=== PATIENT | male | born 1970 | race African-American/Black ===

== ENCOUNTER 2020-10-16 15:19 | Emergency (ER) | payer BC ==
--- OUTSIDE RECORDS SUMMARY | 2020-10-16 15:26 | XMS REPORT | Continuity of Care Document ---
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 Jaciel rial [place] Diastolic (mm Hg) 2015-05-12 02:29:00 Mem orial [facility] Heart Rate 2015-05-12 02:29:00 [facility] [place] Respitory Rate 2015-05-12 02:29:00 Memori al [place] BMI Calculated 2015-05-11 17:44:00 Memori al [place] Height 2015-05-11 17:44:00 175.26 cm [facility] Weight 2015-05-11 17:44:00 [facility] Respitory Rate 2015-05-11 17:44:00 Memori al [facility] Heart Rate 2015-05-11 17:44:00 [facility] [place] Systolic (mm Hg) 2015-05-11 17:44:00 Jaciel rial [facility] Diastolic (mm Hg) 2015-05-11 17:44:00 Mem [facility] [place] Temperature Oral (F) 2014-09-07 05:25:00 98.2 F [facility] Respitory Rate 2014-09-07 05:25:00 Memori al [place] Heart Rate 2014-09-07 05:25:00 [facility] Systolic (mm Hg) 2014-09-07 05:25:00 Jaciel rial [place] Diastolic (mm Hg) 2014-09-07 05:25:00 Mem orial [place] BMI Calculated 2014-09-07 01:20:00 Memori al [facility] Height 2014-09-07 01:20:00 175.26 cm [facility] Heart Rate 2014-09-07 01:20:00 [facility] [place] Respitory Rate 2014-09-07 01:20:00 Memori al Erik Systolic (mm Hg) 2014-09-07 01:20:00 Jaciel rial [place] Diastolic (mm Hg) 2014-09-07 01:20:00 Mem orial [place] Weight 2014-09-07 01:20:00 [facility] Temperature Oral (F) 2014-09-07 01:20:00 97.4 F [facility] Procedures Procedure Date / Time Performed Performing Clinician Sour e ACD - Automatic cardiac [facility] [place] defibrillator procedure Plan of Care Planned Activity Planned Date Details Comments Source Future Scheduled Test Hepatitis C screening [facility] (procedure) [code = 499394504] Future Scheduled Test INFLUENZA VACCINE [facility] [code = INFLUENZA VACCINE] Future Scheduled Test Hepatitis C screening [facility] (procedure) [code = 697865008] Future Scheduled Test INFLUENZA VACCINE [facility] [code = INFLUENZA VACCINE] Encounters Start End Encounter Admission Attending Care Care Encounter Source Date/Time Date/Time Type Type Clinicians Facility Department ID 2020-10-12 2020-10-12 Refill [place] 1.2.840.1 [id number] Methodi 00:00:00 00:00:00 Matt nascimento 04189.1.[address] 3.430.2.7 Hospit a .3.800508 l .8 2020-10-01 2020-10-05 Inpatient EM Du Regan HCAKW CARD [id number] [id number] [facility] 21:46:00 13:46:00 [id number] [facility] [address] 2020-09-28 2020-09-28 Refill [place] 1.2.840.1 [id number] Methodi 00:00:00 00:00:00 Matt nascimento 44338.1.[address] 3.430.2.7 Hospit a .3.624550 l .8 2020-09-28 2020-09-28 Refill [place] 1.2.840.1 [id number] Methodi 00:00:00 00:00:00 Matt nascimento 18617.1.[address] 3.430.2.7 Hospit a .3.753406 l .8 2020-09-17 2020-09-17 Refill Martínez, 1.2.840.1 [id number] 2099 [id number] Methodi 00:00:00 00:00:[address] 3.430.2.7 Hospit a .3.530036 l .8 2020-09-17 2020-09-17 Refill Martínez, 1.2.840.1 [id number] 2099 [id number] Methodi 00:00:00 00:00:[address] 3.430.2.7 Hospit a .3.562263 l .8 2020-09-15 2020-09-15 Refill [place] 1.2.840.1 [id number] 21 [id number] Methodi 00:00:00 00:00:00 g, Matt 33582.1.[address] 3.430.2.7 Hospit a .3.255236 l .8 2020-09-15 2020-09-15 Refill [place] 1.2.840.1 [id number] 21 [id number] Methodi 00:00:00 00:00:00 g, Matt 33004.1.[address] 3.430.2.7 Hospit a .3.323425 l .8 2020-08-31 2020-08-31 Refill [place] 1.2.840.1 [id number] 21 [id number] Methodi 00:00:00 00:00:00 g, Matt 11017.1.[address] 3.430.2.7 Hospit a .3.303200 l .8 2020-08-31 2020-08-31 Refill [place] 1.2.840.1 [id number] 21 [id number] Methodi 00:00:00 00:00:00 g, Matt 41114.1.[address] 3.430.2.7 Hospit a .3.383035 l .8 2020-08-25 2020-08-25 Emergency HarmanRadha bishop HCAKW FCER CD563 677-2 [facility] 18:38:00 19:29:00 [id number] [facility] [address] 2020-08-17 2020-08-17 Refill [place] 1.2.840.1 [id number] 21 [id number] Methodi 00:00:00 00:00:00 g, Matt 86267.1.[address] 3.430.2.7 Hospit a .3.556239 l .8 2020-08-17 2020-08-17 Refill [place] 1.2.840.1 [id number] 21 [id number] Methodi 00:00:00 00:00:00 g, Matt 50729.1.[address] 3.430.2.7 Hospit a .3.436030 l .8 2020-08-07 2020-08-07 Refill [place] 1.2.840.1 [id number] 21 [id number] Methodi 00:00:00 00:00:00 g, Matt 32699.1.[address] 3.430.2.7 Hospit a .3.922711 l .8 2020-08-07 2020-08-07 Refill [place] 1.2.840.1 [id number] 21 [id number] Methodi 00:00:00 00:00:00 g, Matt 49087.1.[address] 3.430.2.7 Hospit a .3.490347 l .8 2020-08-04 2020-08-04 Refill [place] 1.2.840.1 [id number] 21 [id number] Methodi 00:00:00 00:00:00 g, Matt [address]2546.1.[address] 3.430.2.7 Hospit a .3.001893 l .8 2020-08-04 2020-08-04 Refill [place] 1.2.840.1 [id number] 21 [id number] Methodi 00:00:00 00:00:00 g, Matt 16646.1.[address] 3.430.2.7 Hospit a .3.040167 l .8 2020-07-17 2020-07-17 Refill [place] 1.2.840.1 [id number] 21 [id number] Methodi 00:00:00 00:00:00 g, Matt 72258.1.[address] 3.430.2.7 Hospit a .3.538614 l .8 2020-07-17 2020-07-17 Refill [place] 1.2.840.1 [id number] 21 [id number] Methodi 00:00:00 00:00:00 g, Matt [address]4670.1.[address] 3.430.2.7 Hospit a .3.810945 l .8 2020-07-07 2020-07-07 Refill [place] 1.2.840.1 [id number] 21 [id number] Methodi 00:00:00 00:00:00 g, Matt 50181.1.[address] 3.430.2.7 Hospit a .3.896634 l .8 2020-07-07 2020-07-07 Refill [place] 1.2.840.1 [id number] 21 [id number] Methodi 00:00:00 00:00:00 g, Matt 37215.1.[address] 3.430.2.7 Hospit a .3.564453 l .8 2020-06-16 2020-06-16 Refill [place] 1.2.840.1 [id number] Methodi 00:00:00 00:00:00 g, Matt 19469.1.[address] 3.430.2.7 Hospit a .3.470744 l .8 2020-06-16 2020-06-16 Refill [place] 1.2.840.1 [id number] Methodi 00:00:00 00:00:00 g, Matt 75423.1.[address] 3.430.2.7 Hospit a .3.890258 l .8 2020-05-26 2020-05-26 Refill [place] 1.2.840.1 [id number] Methodi 00:00:00 00:00:00 g, Matt 36576.1.[address] 3.430.2.7 Hospit a .3.806573 l .8 2020-05-26 2020-05-26 Refill [place] 1.2.840.1 [id number] Methodi 00:00:00 00:00:00 g, Matt 61255.1.[address] 3.430.2.7 Hospit a .3.801468 l .8 2020-05-14 2020-05-14 Sae Mercado 1.2.840.1 [id number] 57780 71834 Methodi 07:58:38 08:03:38 Support Christopher 14811.1.[address] P. 3.430.2.7 Hospit a .3.986034 l .8 2020-05-14 2020-05-14 Clinical Jess, 1.2.840.1 [id number] 71035 72879 Methodi 07:58:38 08:03:38 Support Scottopher 24440.1.[address] P. 3.430.2.7 Hospit a .3.459689 l .8 2020-05-14 2020-05-14 Travel 1.2.840.1 1.2.854.611 4696 025001 Methodi 00:00:00 00:00:[address] 3.430.2.7 0.2.7.3.698 Ho spita .3.734316 084.8 l .8 2020-05-14 2020-05-14 Travel 1.2.840.1 1.2.164.019 4709 629962 Methodi 00:00:00 00:00:[address] 3.430.2.7 0.2.7.3.698 Ho spita .3.835363 084.8 l .8 2020-05-12 2020-05-12 Refill [place] 1.2.840.1 [id number] Methodi 00:00:00 00:00:00 [address].1.[address] 3.430.2.7 Hospit a .3.812264 l .8 2020-05-12 2020-05-12 Refill [place] 1.2.840.1 [id number] Methodi 00:00:00 00:00:00 g, Matt 02770.1.[address] 3.430.2.7 Hospit a .3.626145 l .8 2020-05-01 2020-05-01 Refill [place] 1.2.840.1 [id number] Methodi 00:00:00 00:00:00 g, Matt 59012.1.[address] 3.430.2.7 Hospit a .3.975274 l .8 2020-05-01 2020-05-01 Refill [place] 1.2.840.1 [id number] Methodi 00:00:00 00:00:00 g, Matt 78132.1.[address] 3.430.2.7 Hospit a .3.126101 l .8 2020-04-29 2020-04-29 Refill [place] 1.2.840.1 [id number] Methodi 00:00:00 00:00:00 g, Matt 71191.1.[address] 3.430.2.7 Hospit a .3.551468 l .8 2020-04-29 2020-04-29 Refill [place] 1.2.840.1 [id number] Methodi 00:00:00 00:00:00 g, Matt 12613.1.[address] 3.430.2.7 Hospit a .3.165439 l .8 2020-04-27 2020-04-27 Refill Martínez, 1.2.840.1 [id number] 2099 [id number] Methodi 00:00:00 00:00:[address] 3.430.2.7 Hospit a .3.330603 l .8 2020-04-27 2020-04-27 Refill Martínez, 1.2.840.1 [id number] 2099 [id number] Methodi 00:00:00 00:00:[address] 3.430.2.7 Hospit a .3.413330 l .8 2020-04-23 2020-04-23 Clinical 1.2.840.1 [id number] 94626 94642 Methodi 08:15:28 08:20:[address] 3.430.2.7 Hospit a .3.192943 l .8 2020-04-23 2020-04-23 Clinical 1.2.840.1 [id number] 44333 39964 Methodi 08:15:28 08:20:[address] 3.430.2.7 Hospit a .3.604410 l .8 2020-04-23 2020-04-23 Travel 1.2.840.1 1.2.158.388 8545 889336 Methodi 00:00:00 00:00:[address] 3.430.2.7 0.2.7.3.698 Ho spita .3.454558 084.8 l .8 2020-04-23 2020-04-23 Travel 1.2.840.1 1.2.398.291 1536 245719 Methodi 00:00:00 00:00:[address] 3.430.2.7 0.2.7.3.698 Ho spita .3.072202 084.8 l .8 2020-04-03 2020-04-03 Refill [place] 1.2.840.1 [id number] 21 [id number] Methodi 00:00:00 00:00:00 Matt nascimento 08296.1.[address] 3.430.2.7 Hospit a .3.069298 l .8 2020-04-03 2020-04-03 Refill [place] 1.2.840.1 [id number] Methodi 00:00:00 00:00:00 Matt nascimento 36771.1.[address] 3.430.2.7 Hospit a .3.956726 l .8 2018-06-09 2018-06-09 Emergency [facility] 01794 02559 Memoria 08:43:00 12:10:00 claudia brooks [facility] 2018-06-09 2018-06-09 Emergency [facility] 35749 56754 Memoria 08:43:00 12:10:00 claudia brooks [facility] 2018-06-09 2018-06-09 Outpatient Segerson, [facility] 07677 76158 03:43:00 07:10:00 Chace Butler 2018-06-09 2018-06-09 Emergency [facility] [place] 9117 [facility] 03:43:00 03:43:00 2017-07-29 2017-07-30 [facility] 69267 54038 Memoria 23:42:00 03:15:00 r [place] 03 l [facility] 2017-07-29 2017-07-30 Emergency [facility] 43964 50589 Memoria 23:42:00 03:15:00 r [place] 03 l [facility] 2017-07-29 2017-07-29 Outpatient Weathers, [facility] 29450 01547 18:42:00 22:15:00 Patel Tarun 03 2015-05-11 2015-05-12 EC [facility] [id number] 875 Memoria 17:37:00 02:32:00 Emergency r [place] 02 l [facility] 2015-05-11 2015-05-12 EC [facility] [id number] 875 Memoria 17:37:00 02:32:00 Emergency r Erik 02 l [facility] 2015-05-11 2015-05-11 Outpatient Volkov, [facility] [id number] 875 12:37:00 21:32:00 Yogi 02 2014-09-07 2014-09-07 [facility] [id number] 875 Memoria 01:16:00 05:46:00 Emergency r [place] 01 l [facility] 2014-09-07 2014-09-07 EC [facility] [id number] 875 Memoria 01:16:00 05:46:00 Emergency r [place] 01 l [facility] 2014-09-06 2014-09-07 Outpatient Ivan, [facility] [id number] 875 20:16:00 00:46:00 Dawson Merida 01 Results Test Description Test Time Test Comments Results Result Comments Source BASIC METABOLIC PANEL 2020-10-05 06:26:00 Test Item Value Reference Range Interpretation Comme nts SODIUM (test code = NA) 139 mmol/L 137-145 N POTASSIUM (test code = K) 4.3 mmol/L 3.4-5.0 N CHLORIDE (test code = CL) 108 mmol/L 98-107 H CARBON DIOXIDE (test code = 21 mmol/L 22-30 L CO2) GLUCOSE (test code = GLU) 103 mg/dL 74-106 N BLOOD UREA NITROGEN (test code 23 mg/dL 9-20 H = BUN) GLOMERULAR FILTRATION RATE 43 >60 L T he estimated glomerular (test code = GFR) filtration rate is computed usingpatient ra ce, age (>18), sex, and serum creatinine. If anyof the neede d data elements are missing the Laboratory cannot compute an estimation of the glomerular filtration rate. CREATININE (test code = CREAT) 2.1 mg/dL 0.7-1.3 H CALCIUM (test code = CA) 9.0 mg/dL 8.4-10.2 N BASIC METABOLIC [id number] 04:58:00 Test Item Value Reference Range Interpretation Comments SODIUM (test code = 137 mmol/L 137-145 N NA) POTASSIUM (test code 4.2 mmol/L 3.4-5.0 N = K) CHLORIDE (test code = 109 mmol/L 98-107 H CL) CARBON DIOXIDE (test 20 mmol/L 22-30 L code = CO2) GLUCOSE (test code = 104 mg/dL 74-106 N GLU) BLOOD UREA NITROGEN 25 mg/dL 9-20 H (test code = BUN) GLOMERULAR FILTRATION 41 >60 L The es timated RATE (test code = glomerular filtration GFR) rate is compute d usingpatient ra ce, age (>18), sex, and serum creatinine. If anyof the needed data elements are mi ssing the Laboratory cannot compute an koffi mation of the glomerul ar filtration rate . CREATININE (test code 2.2 mg/dL 0.7-1.3 H = CREAT) CALCIUM (test code = 8.9 mg/dL 8.4-10.2 N CA) - CT CHEST W/O [id number] 18:12:00 [facility] : 1970 Sex: M FAX: Nicolás Cornell II [phone] [place]: St: ADM FAX: Du Metz MD [phone] Name: ROSS MACHADO [facility] : 1970 Age/S: 50/M [address] Unit: [id number] Loc: [address] [address] Phys: Nicolás Hdz II, MD Acct: [id number] Dis Date: Status: ADM IN PHONE#: [phone] Exam Date: 10/03/2020 1740 FAX #: [phone] Reason: AORTIC DISSECTION EXAMS: CPT CODE: [id number] CT CHEST W/O CONTRAST 06311 EXAMINATION: - CT ABDOMEN W/O CONTRAST, - CT CHEST W/O CONTRAST COMPARISON: CT scan of the abdomen performed 7 hours previously HISTORY: Pain LOCATION CODE: C3 TECHNIQUE: CT of the Chest and Abdomen without contrast. Oral contrast was not administered Axial noncontrast enhanced images of the chest and abdomen were obtained and reviewed in soft tissue, bone and lung windows. Coronal and sagittal reconstructedimages were also provided for review. All CT scans are performed using dose optimization techniques as appropriate to a performed exam including one or more of the following: ?Automated exposure control ?Adjustment of the mA and/or kV according to patient size ?Use of iterative reconstruction technique FINDINGS CHEST: Areas of mild dependent atelectasis are seen in the right lower lobe the lung. The lungs are otherwise clear. The central airways are patent. There is no mediastinal, axillary or supraclavicular ad enopathy. The aortic root is dilated, measuring 5.9 x 6.5 cm. Graft material is seen in the ascending aorta just distal to this area. There is no evidence of acute dissection. The descending thoracic aorta measures 3.9 cm and the aorta at the diaphragmatic hiatus measures 3.8 cm. Single lead implanted cardiac device is present in the left chest wall. Sternotomy wires are evident. The thyroid is diminutive and heterogeneous. Regional osseous structures are intact. FINDINGS ABDOMEN: Findings in the abdomen are stable. There has been no significant change in the appearance of the solid visceral organs, the bowel, bonesor the vessels since the CT performed earlier the same day.. No acute abnormalities are identified in the aorta or its branch vessels are stable in appearance. Colonic diverticulosis is unchanged. PAGE 1 Signed Report (CONTINUE D) FAX: Nicolás Cornell II [phone] [place]: St: ADM FAX: Du Metz [phone] Name: ROSS MACHADO [facility] : 1970 Age/S: 50/M [address] Unit: [id number] Loc: C.[address] [place] [address] Phys: Nicolás Hdz II, MD Acct: [id number] Dis Date: Status: ADM IN PHONE #: [phone] Exam Date: 10/03/2020 174 FAX #: [phone] Reason: AORTIC DISSECTION EXAMS: CPT CODE: [id number] CT CHEST W/O CONTRAST 96807 <Continued> IMPRESSION: Dilated aortic root with presumed graft material seen in the ascending aorta as detailed above. No acute vascular abnormalities are identified. The appearance of the abdomen is unchanged from the CT performed earlier the same day at 1812 Reported and signed by: Trinity Jerry MD CC: Nicolás Hdz II, MD; Eliseo Regan MD Technologist: Marilu Talleydejose m Dt/Tm: 10/03/2020 (1811) [id number] Orig Print D/T: S: 10/03/2020 (2245 PAGE 2 Signed Report- CT ABDOMEN W/O [id number] 18:12:00 [facility] : 1970 Sex: M FAX: Nicolás Cornell II [phone] [place]: St: ADM FAX: Du Metz MD [phone] Name: ROSS MACHADO [facility] : 1970 Age/S: 50/M [address] Unit: [id number] Loc: C3310 [place] [address] Phys: Nicolás Hdz II, MD Acct: [id number] Dis Date: Status: ADM IN PHONE#: [phone] Exam Date: 10/03/2020 1740 FAX #: [phone] Reason: AORTIC DISSECTION EXAMS: CPT CODE: [id number] CT ABDOMEN W/O CONTRAST 60282 EXAMINATION: - CT ABDOMEN W/O CONTRAST, - CT CHEST W/O CONTRAST COMPARISON: CT scan of the abdomen performed 7 hours previously HISTORY: Pain LOCATION CODE: C3 TECHNIQUE: CT of the Chest and Abdomen without contrast. Oral contrast was not administered Axial noncontrast enhanced images of the chest and abdomen were obtained and reviewed in soft tissue, bone and lung windows. Coronal and sagittal reconstructedimages were also provided for review. All CT scans are performed using dose optimization techniques as appropriate to a performed exam including one or more of the following: ?Automated exposure control ?Adjustment of the mA and/or kV according to patient size ?Use of iterative reconstruction technique FINDINGS CHEST: Areas of mild dependent atelectasis are seen in the right lower lobe the lung. The lungs are otherwise clear. The central airways are patent. There is no mediastinal, axillary or supraclavicular ad enopathy. The aortic root is dilated, measuring 5.9 x 6.5 cm. Graft material is seen in the ascending aorta just distal to this area. There is no evidence of acute dissection. The descending thoracic aorta measures 3.9 cm and the aorta at the diaphragmatic hiatus measures 3.8 cm. Single lead implanted cardiac device is present in the left chest wall. Sternotomy wires are evident. The thyroid is diminutive and heterogeneous. Regional osseous structures are intact. FINDINGS ABDOMEN: Findings in the abdomen are stable. There has been no significant change in the appearance of the solid visceral organs, the bowel, bonesor the vessels since the CT performed earlier the same day.. No acute abnormalities are identified in the aorta or its branch vessels are stable in appearance. Colonic diverticulosis is unchanged. PAGE 1 Signed Report (CONTINUE D) FAX: Nicolás Cornell II [phone] [place]: St: ADM FAX: Du Metz [facility] [phone] Name: ROSS MACHADO [facility] : 1970 Age/S: 50/M [address] Unit: [id number] Loc: C.7[address] [place] [address] Phys: Nicolás Hdz II, MD Acct: [id number] Dis Date: Status: ADM IN PHONE #: [phone] Exam Date: 10/03/2020 1740 FAX #: [phone] Reason: AORTIC DISSECTION EXAMS: CPT CODE: [id number] CT ABDOMEN W/O CONTRAST 95992 <Continued> IMPRESSION: Dilated aortic root with presumed graft material seen in the ascending aorta as detailed above. No acute vascular abnormalities are identified. The appearance of the abdomen is unchanged from the CT performed earlier the same day at 1812 Reported and signed by: Trinity Jerry MD CC: Nicolás Hdz II, MD; Eliseo Regan MD Technologist: Marilu Bhatti Trnscrd Dt/Tm: 10/03/2020 (1811) [email or web address] Orig Print D/T: S: 10/03/2020 (5 PAGE 2 Signed Report- RETRO [id number] 13:04:00 [facility] : 1970 Sex: M FAX: Janae Spencer MD [place]: St: ADM FAX: Du Metz MD [phone] Name: ROSS MACHADO [facility] : 1970 Age/S: 50/M [address] Unit #: [id number] Loc: C.[address] [place] [address] Phys: Janae Malagon MD Acct: [id number] Dis Date: Status: ADM IN PHONE #: [phone] Exam Date: 10/03/2020 1249 FAX #: [phone] Reason: CLAY EXAMS: CPT CODE: [id number] [facility] [address] Site ID: [id number] Renal ultrasound CLINICAL HISTORY: Acute kidney injury TECHNIQUE: Realtime barboza scale and color doppler imaging of the kidneys performed FINDINGS: The kidneys are normal in size and echogenicity. Theright kidney measures 9.5 x 5.4 cm. The left kidney measures 9.2 x 5 cm. No renal mass, hydronephrosis, or shadowing calculus is seen. Cortical thickness is well maintained bilaterally. IMPRESSION: Normal renal ultrasound at 1304 Reported and signed by: Leonard Logan MD CC: Janae Malagon MD; Du Regan MD Technologist: [facility]DRA LUTZ [facility] Date/Time/By: 10/03/2020 (5017) : By: [email or web address] PAGE 1 Signed Report FAX: Janae Spencer MD [place]: St: [facility] FAX:Du Metz MD [phone] Name: ROSS MACHADO [facility] : 1970 Age/S: 50/M [address] Unit #: [id number] Loc: C.[address] [place] [address] Phys: Janae Malagon MD Acct: [id number] Dis Date: Status: ADM IN PHONE #: [phone] Exam Date: 10/03/2020 1242 FAX #: [phone] Reason: CLAY EXAMS: CPT CODE: [id number] [facility] LTD [address]105 <Continued> Orig Print D/T: S: 10/03/2020 (8837) PAGE 2 Signed ReportCARDIAC ENZYMES [id number] 03:29:00 Test Item Value Reference Range Interpretation Comments TROPONIN-I (test 0.023 ng/mL 0.012-0.033 N code = TROPI) Please be advised of the updated reference ranges for the new Chemistry instrumentation . TROS TROPONIN I CRITERIANORM AL PATIENT W/O CIRCULATING TNI: 0.012-0.033 ng/mLCIRCULATIN G TNI PRESENT: 0.034- 0.119 ng/mL(MAY BE AT RISK OF AMI)AMI DIAGNOS TIC CUTOFF: >/= 0.120 ng/mL~~~~~~~~~~ ~~~~~~~~~~~ ~~~~~~~~~~~~~~~ ~~~~~~~~~~~ ~~~~~~~~~~~~The use of serial sampling and testing protoco l is arecommended pr actice.An elevated tropon in level alone is often not sufficient noonan iagnosis of myocardial infa rction. Troponin result s obtained by different as says may vary.Evaluation of the extent of myoca rdial damage based on increase of troponin would be valid only if similar methodology is used.~~~~~~~~~~ ~~~~~~~~~~~ ~~~~~~~~~~~~~~~ ~~~~~~~~~~~ ~~~~~~~~~~~~ A POSITIVE BIAS M AY OCCUR FOR PATIENTS TAKING BIOTIN SUPPLEMENTS~~~~ ~~~~~~~~~~~ ~~~~~~~~~~~~~~~ ~~~~~~~~~~~ ~~~~~~~~~~~~~~~ ~~~ BASIC METABOLIC [id number] 03:21:00 Test Item Value Reference Range Interpretation Comments SODIUM (test code = 138 mmol/L 137-145 N NA) POTASSIUM (test code 4.1 mmol/L 3.4-5.0 N = K) CHLORIDE (test code = 109 mmol/L 98-107 H CL) CARBON DIOXIDE (test 23 mmol/L 22-30 N code = CO2) GLUCOSE (test code = 112 mg/dL 74-106 H GLU) BLOOD UREA NITROGEN 29 mg/dL 9-20 H (test code = BUN) GLOMERULAR FILTRATION 36 >60 L The es timated RATE (test code = glomerular filtration GFR) rate is compute d usingpatient ra ce, age (>18), sex, and serum creatinine. If anyof the needed data elements are mi ssing the Laboratory cannot compute an koffi mation of the glomerul ar filtration rate . CREATININE (test code 2.5 mg/dL 0.7-1.3 H = CREAT) CALCIUM (test code = 8.4 mg/dL 8.4-10.2 N CA) CBC W/AUTO [id number] 03:02:00 Test Item Value Reference Range Interpretation Comments WHITE BLOOD CELL (test code = 6.6 x10 3/uL 5.0-12.0 N WBC) RED BLOOD CELL (test code = 3.76 x10 6/uL 4.70-6.10 L RBC) HEMOGLOBIN (test code = HGB) 10.9 g/dL 14.0-18.0 L HEMATOCRIT (test code = HCT) 34.2 % 37.0-49.0 L MEAN CELL VOLUME (test code = 91 fL 80-94 N MCV) MEAN CELL HGB (test code = MCH) 29.0 pg 27-31 N MEAN CELL HGB CONCENTRATION 31.9 g/dL 33-37 L (test code = MCHC) RED CELL DISTRIBUTION WIDTH 14.6 % 11.5-15.5 N (test code = RDW) PLATELET COUNT (test code = 186 x10 3/uL 130-400 N PLT) MEAN PLATELET VOLUME (test code 10.8 fL 9.4-16.4 N = MPV) NEUTROPHIL % (test code = NT%) 52.3 % 43-65 N IMMATURE GRANULOCYTE % (test 0.2 % 0.0-2.0 N code = IG%) LYMPHOCYTE % (test code = LY%) 38.2 % 20.5-45.5 N MONOCYTE % (test code = MO%) 7.9 % 5.5-11.7 N EOSINOPHIL % (test code = EO%) 0.9 % 0.9-2.9 N BASOPHIL % (test code = BA%) 0.5 % 0.2-1.0 N NUCLEATED RBC % (test code = 0.0 % 0-1.0 N NRBC%) NEUTROPHIL # (test code = NT#) 3.45 x10 3/uL 2.2-4.8 N IMMATURE GRANULOCYTE # (test 0.01 x10 3/uL 0-0.03 N code = IG#) LYMPHOCYTE # (test code = LY#) 2.52 x10 3/uL 1.3-2.9 N MONOCYTE # (test code = MO#) 0.52 x10 3/uL 0.3-0.8 N EOSINOPHIL # (test code = EO#) 0.06 x10 3/uL 0.0-0.2 N BASOPHIL # (test code = BA#) 0.03 x10 3/uL 0.0-0.1 N UR SODIUM [id number] 23:44:00 Test Item Value Reference Range Interpretation Comments UR SODIUM RANDOM 88 mmol/L 30-90 N 24hr: 40-22 0 (test code = TORIN) mmol/George ndom: 30-90 mmol/L UR CREATININE [id number] 23:44:00 Test Item Value Reference Range Interpretation Comments UR CREATININE RANDOM 192.2 mg/dL ~~~~~~~ ~~~~~~~~~~~~~~~ (test code = CREATU) ~~~~~~~ ~~~~~~~~~~~~~~~ ~~~~~~~~~~~~~~~ This test has been performed on a fluid type that has nopublished nor mal reference range s. Please evaluate theseresults on an individual basis.~~~~~~~~~ ~~~~~~~ ~~~~~~~~~~~~~~~ ~~~~~~~ ~~~~~~~~~~~~~~~ ~~~~~~ LACTIC [id number] 23:04:00 Test Item Value Reference Range Interpretation Comments LACTIC ACID (test code = LACT) 1.2 mmol/L 0.7-2.0 N CARDIAC ENZYMES [id number] 07:19:00 Test Item Value Reference Range Interpretation Comments TROPONIN-I (test code = TROPI) 0.19 ng/mL 0.00-0.07 H COMPREHENSIVE METABOLIC [id number] 07:14:00 Test Item Value Reference Range Interpretation Comments SODIUM (test code = 141 MMOL/L 135-147 N NA) POTASSIUM (test code 4.0 MMOL/L 3.6-5.2 N = K) CHLORIDE (test code = 108 MMOL/L 98-108 N CL) CARBON DIOXIDE (test 23 mmol/L 21-32 N code = CO2) GLUCOSE (test code = 114 mg/dL 70-110 H GLU) BLOOD UREA NITROGEN 31 MG/DL 6-21 H (test code = BUN) GLOMERULAR FILTRATION 33 >60 L The es timated RATE (test code = glomerular filtration GFR) rate is compute d usingpatient ra ce, age (>18), sex, and serum creatinine. If anyof the needed data elements are mi ssing the Laboratory cannot compute an koffi mation of the glomerul ar filtration rate . CREATININE (test code 2.7 mg/dL 0.6-1.3 H = CREAT) TOTAL PROTEIN (test 7.3 g/dL 6.0-8.2 N code = PROT) ALBUMIN (test code = 3.7 G/DL 3.7-5.5 N ALB) CALCIUM (test code = 8.7 mg/dL 8.7-10.5 N CA) BILIRUBIN TOTAL (test 0.40 mg/dL 0.0-1.0 N code = BILT) SGOT/AST (test code = 19 UNITS/L 10-37 N AST) SGPT/ALT (test code = 18 UNITS/L 12-78 N ALT) ALKALINE PHOSPHATASE 56 UNITS/L 46-116 N (test code = ALKP) LIPID PROFILE (CORONARY RISK)2020-10-02 07:06:00 Test Item Value Reference Range Interpretation Comments TRIGLYCERIDES (test 173 mg/dL 50-200 N code = TRIG) CHOLESTEROL (test code 175 mg/dL 120-200 N = CHOL) HDL CHOLESTEROL (test 45 mg/dL 32-96 N code = HDL) LIPOPROTEIN LDL (test 98 MG/DL 0-99 N code = LDLC) CORONARY RISK FACTOR 3.89 (test code = RISK) CHOL/HDL RISK MALE: 1/2 AVG 3.43 FEMALE: 1/2 AV G 3.27 AVG 4.97 AVG 4.44 2X AVG 9.55 2X AVG 7.05 3X AVG 23.39 3X AVG 11.04~~~~~~~~~~ ~~~~~~~ ~~~~~~~~~~~~~~~ ~~~~~~~ ~~~~~~~~~~~~~~~ ~~~~~~N [facility] Cholest sumeet Education (NCEP ) Guidelines:~~~~ ~~~~~~~ ~~~~~~~~~~~~~~~ ~~~~~~~ ~~~~~~~~~~~~~~~ ~~~~~~~ ~~~~~ HDL Cholesterol<4 0mg/dL: HDL Cholesterol (Major risk factor for CHD)>60mg/dL: H DL Cholesterol (Ne gative risk factor for CHD)40-59mg/dL: Borderline Risk L DL Cholesterol<1 00mg/dL : Desirable LDL -C mvnfnmahcttrv49 0-159mg /dL: Borderline High Risk LDL-C zpjmkovelvwru24 0-189mg /dL: High risk LDL-C concentration H DL-LDL Cholesterol is affected by a n umber of factors such as smoking, age an d sex.~~~~~~~~~~~ ~~~~~~~ ~~~~~~~~~~~~~~~ ~~~~~~~ ~~~~~~~~~~~~~~~ ~~~~~ CARDIAC ENZYMES [id number] 07:06:00 Test Item Value Reference Range Interpretation Comments TROPONIN-I (test code = TROPI) 0.19 ng/mL 0.00-0.07 H COMPREHENSIVE METABOLIC [id number] 07:04:00 Test Item Value Reference Range Interpretation Comments SODIUM (test code = 141 MMOL/L 135-147 N NA) POTASSIUM (test code 4.0 MMOL/L 3.6-5.2 N = K) CHLORIDE (test code = 108 MMOL/L 98-108 N CL) CARBON DIOXIDE (test 23 mmol/L 21-32 N code = CO2) GLUCOSE (test code = 114 mg/dL 70-110 H GLU) BLOOD UREA NITROGEN 31 MG/DL 6-21 H (test code = BUN) GLOMERULAR FILTRATION 33 >60 L The es timated RATE (test code = glomerular filtration GFR) rate is compute d usingpatient ra ce, age (>18), sex, and serum creatinine. If anyof the needed data elements are mi ssing the Laboratory cannot compute an koffi mation of the glomerul ar filtration rate . CREATININE (test code 2.7 mg/dL 0.6-1.3 H = CREAT) TOTAL PROTEIN (test g/dL 6.0-8.2 code = PROT) ALBUMIN (test code = G/DL 3.7-5.5 ALB) CALCIUM (test code = 8.7 mg/dL 8.7-10.5 N CA) BILIRUBIN TOTAL (test mg/dL 0.0-1.0 code = BILT) SGOT/AST (test code = UNITS/L 10-37 AST) SGPT/ALT (test code = UNITS/L 12-78 ALT) ALKALINE PHOSPHATASE UNITS/L 46-116 (test code = ALKP) [id number] 02:51:00 Test Item Value Reference Range Interpretation Comments TROPONIN-I (test 0.19 ng/mL 0.00-0.07 H Critical Va lue reported code = TROPI) toFirst Name:Bianca [id number] Last Name:CLINT YU [employer] BACK [employer] RICKY FlowersLAB.ABL1, on 10/02/20, @ 0251. - XR CHEST 1 [id number] 21:12:00 [facility] : 1970 Sex: M [place]: St: REG Name: ROSS MACHADONeihart : 1970 Age/S: 50/M [address] [facility] Unit #: [id number] Loc: [place], [place] [address] Phys: Radha Harman MD Acct: [id number] Dis Date: Status: REG ER PHONE #: Exam Date: 10/01/2020 9927 FAX #: Reason: chest pain EXAMS: CPT CODE: [id number] XR CHEST 1 V 63177 EXAM: CHEST ONE VIEW INDICATION: CHESTPAIN LOCATION: B2 COMPARISON: January 06, 2018 TECHNIQUE:AP view of the chest FINDINGS: The heart size is normal. There is evidence of prior thoracic surgery. There is a cardiac pacing device in the left chest with no apparent discontinuity of the lead. The lungs are clear bilaterally. The pulmonary vasculature is normal. No pneumothorax or pleural effusion is identified. The osseous structures are normal. IMPRESSION: No acute cardiopulmonary process. at 2111 Reported and signed by: Malena Houston MD CC: Technologist: VERONICA SEARS Trnscrd Date/Time/By: 10/01/2020 (2111) : By: [email or web address] PAGE 1 Signed Report [place]: St: REG Name: ROSS MACHADO : 1970 Age/S: 50/M [address] [facility] [place] Unit #: [id number] Loc: [place] [address] Phys: Radha Harman MD Acct: [id number] Dis Date: Status: REG ER PHONE #: Exam Date: 10/01/20202104 FAX #: Reason: chest pain EXAMS: CPT CODE: [id number] XR CHEST 1 V 51250 <Continued> Orig Print D/T: S: 10/01/2020 (2114) PAGE 2 Signed Report COMPREHENSIVE METABOLIC [id number] 21:07:00 Test Item Value Reference Range Interpretation Comments SODIUM (test code = 139 MMOL/L 135-147 N NA) POTASSIUM (test code 4.4 MMOL/L 3.6-5.2 N = K) CHLORIDE (test code = 108 MMOL/L 98-108 N CL) CARBON DIOXIDE (test 22 mmol/L 21-32 N code = CO2) GLUCOSE (test code = 105 mg/dL 70-110 N GLU) BLOOD UREA NITROGEN 36 MG/DL 6-21 H (test code = BUN) GLOMERULAR FILTRATION 28 >60 L The es timated RATE (test code = glomerular filtration GFR) rate is compute d usingpatient ra ce, age (>18), sex, and serum creatinine. If anyof the needed data elements are mi ssing the Laboratory cannot compute an koffi mation of the glomerul ar filtration rate . CREATININE (test code 3.1 mg/dL 0.6-1.3 H = CREAT) TOTAL PROTEIN (test 7.1 g/dL 6.0-8.2 N code = PROT) ALBUMIN (test code = 3.5 G/DL 3.7-5.5 L ALB) CALCIUM (test code = 8.6 mg/dL 8.7-10.5 L CA) BILIRUBIN TOTAL (test 0.30 mg/dL 0.0-1.0 N code = BILT) SGOT/AST (test code = 19 UNITS/L 10-37 N AST) SGPT/ALT (test code = 15 UNITS/L 12-78 N ALT) ALKALINE PHOSPHATASE 51 UNITS/L 46-116 N (test code = ALKP) NT PRO-BRAIN NATRIURETIC [id number] 21:07:00 Test Item Value Reference Range Interpretation Comments NT PRO-BRAIN NATRIURETIC PEPTI 1133 pg/mL 0-100 H (test code = PROBNP) [id number] 21:07:00 Test Item Value Reference Range Interpretation Comments TROPONIN-I (test code = TROPI) 0.17 ng/mL 0.00-0.07 H COMPREHENSIVE METABOLIC [id number] 20:56:00 Test Item Value Reference Range Interpretation Comments SODIUM (test code = 139 MMOL/L 135-147 N NA) POTASSIUM (test code 4.4 MMOL/L 3.6-5.2 N = K) CHLORIDE (test code = 108 MMOL/L 98-108 N CL) CARBON DIOXIDE (test 22 mmol/L 21-32 N code = CO2) GLUCOSE (test code = 105 mg/dL 70-110 N GLU) BLOOD UREA NITROGEN 36 MG/DL 6-21 H (test code = BUN) GLOMERULAR FILTRATION 28 >60 L The es timated RATE (test code = glomerular filtration GFR) rate is compute d usingpatient ra ce, age (>18), sex, and serum creatinine. If anyof the needed data elements are mi ssing the Laboratory cannot compute an koffi mation of the glomerul ar filtration rate . CREATININE (test code 3.1 mg/dL 0.6-1.3 H = CREAT) TOTAL PROTEIN (test g/dL 6.0-8.2 code = PROT) ALBUMIN (test code = G/DL 3.7-5.5 ALB) CALCIUM (test code = 8.6 mg/dL 8.7-10.5 L CA) BILIRUBIN TOTAL (test mg/dL 0.0-1.0 code = BILT) SGOT/AST (test code = UNITS/L 10-37 AST) SGPT/ALT (test code = UNITS/L 12-78 ALT) ALKALINE PHOSPHATASE UNITS/L 46-116 (test code = ALKP) NT PRO-BRAIN NATRIURETIC [id number] 20:56:00 Test Item Value Reference Range Interpretation Comments NT PRO-BRAIN NATRIURETIC PEPTI (test pg/mL 0-100 code = PROBNP) [id number] 20:56:00 Test Item Value Reference Range Interpretation Comments TROPONIN-I (test code = TROPI) ng/mL 0.00-0.07 CBC W/AUTO [id number] 20:48:00 Test Item Value Reference Range Interpretation Comments WHITE BLOOD CELL (test code = 7.4 x10 3/uL 5.0-12.0 N WBC) RED BLOOD CELL (test code = 3.90 x10 6/uL 4.70-6.10 L RBC) HEMOGLOBIN (test code = HGB) 11.3 g/dL 14.0-18.0 L HEMATOCRIT (test code = HCT) 35.1 % 37.0-49.0 L MEAN CELL VOLUME (test code = 90 fL 80-94 N MCV) MEAN CELL HGB (test code = MCH) 29.0 pg 27-31 N MEAN CELL HGB CONCENTRATION 32.2 g/dL 33-37 L (test code = MCHC) RED CELL DISTRIBUTION WIDTH 14.6 % 11.5-15.5 N (test code = RDW) PLATELET COUNT (test code = 197 x10 3/uL 130-400 N PLT) MEAN PLATELET VOLUME (test code 10.2 fL 9.4-16.4 N = MPV) NEUTROPHIL % (test code = NT%) 58.4 % 43-65 N IMMATURE GRANULOCYTE % (test 0.3 % 0.0-2.0 N code = IG%) LYMPHOCYTE % (test code = LY%) 32.3 % 20.5-45.5 N MONOCYTE % (test code = MO%) 8.4 % 5.5-11.7 N EOSINOPHIL % (test code = EO%) 0.5 % 0.9-2.9 L BASOPHIL % (test code = BA%) 0.1 % 0.2-1.0 L NEUTROPHIL # (test code = NT#) 4.33 x10 3/uL 2.2-4.8 N IMMATURE GRANULOCYTE # (test 0.02 x10 3/uL 0-0.03 N code = IG#) LYMPHOCYTE # (test code = LY#) 2.40 x10 3/uL 1.3-2.9 N MONOCYTE # (test code = MO#) 0.62 x10 3/uL 0.3-0.8 N EOSINOPHIL # (test code = EO#) 0.04 x10 3/uL 0.0-0.2 N BASOPHIL # (test code = BA#) 0.01 x10 3/uL 0.0-0.1 N CARDIAC [id number] 08:59:000.06[facility] IGEYXLM9073-04-78 08:59:001.4[facility]annCHEM BCTRN5272-78-50 08:59:003.3[facility]annCHE[facility] MJLWN9656-04-50 08:59:002.1[facility]ann[facility] LHDAK2296-81-13 08:59:0045 [facility] LLQNJ8742-78-79 08:59:55141Gxbkvwkm HermannCHEM PANEL 2018-06-09 08:59:0023[facility]annCHE[facility] VHUQC1447-35-82 08:59:19152Alnpuewd [facility]annCHE[facility] NMGTL5583-18-16 08:59:003.5[facility]annCHE[facility] DYQAO2682-45-75 08:59:65543Yvoldbsh [facility]annCHEM INGIY0268-92-62 08:59:002.00[facility]annCHE[facility] UFAHY8052-31-67 08:59:0021[facility]annCHEM MGNSC7828-47-68 08:59:008.4 [facility] NKETJ3670-39-90 08:59:009.5[facility]annHEMATOLOGY 2018-06-09 08:59:0041.9[facility] YxcpdbnTAEUWMXKBX3872-02-34 08:59:0014.1[facility] JldgplbWRMHVKLVVW8618-00-01 08:59:007.9[facility] EdjjcpiESOZBGMBJL6360-65-09 08:59:004.61[facility] TodhbfqWGDMKRVPDM2504-53-95 08:59:0033.5[facility] HRJFIYJOMF3859-01-15 08:59:00 Test Item Value Reference Range Interpretation Comments MCH (test code = MCH) 30.5 pg 27.0-31.0 [facility] MkokawnTLVDVYCXFI2960-62-80 08:59:0091.0[facility]annHEMATOLOGY 2018-06-09 08:59:008.5[facility] YplmbooXDPWKFBWKG4210-41-34 08:59:98512Qqerajjw TjiktddFOFZQCTYBR0012-11-20 08:59:0015.5[facility] HpkrhliHIXQBFAARD9683-99-22 08:59:0042.3[facility] WheoksdKYJRKTOWGA1169-95-40 08:59:000.1[facility] ENAZBIUOZR6745-08-17 08:59:000.1[facility] UpehvwlWIGBASLLJR0115-69-29 08:59:000.5 [facility] KaqkwtuNGJIBJPKSZ3843-84-34 08:59:003.9[facility]annHEMATOLOGY 2018-06-09 08:59:003.3[facility] CinrfcuIVNTTRGPPU1795-05-45 08:59:006.9[facility] ZmfjytkIILHFHLOSF9877-19-90 08:59:001.0[facility] CfpayglWBUEEJBKZN8604-24-82 08:59:000.7[facility] OcpuszqUHAOLHTQGY0329-16-21 08:59:0049.1[facility] CARDIAC MVXVAMU8117-76-56 08:59:000.06[facility]annCARD[facility]AC OVHFCSA0977-08-18 08:59:001.4[facility]annCHEM ZCBSO6844-63-56 08:59:003.3[facility]annCHEM ZLLSJ6973-88-59 08:59:002.1[facility]annCHEM MZEBE2557-56-38 08:59:0045 [facility]annCHE[facility] HQLDB8841-31-85 08:59:71397Qwtxqtng HermannCHEM PANEL 2018-06-09 08:59:0023[facility]annCHEM EBLBH7252-49-55 08:59:02467Hxsebief [facility]annCHEM RCCLU4442-58-19 08:59:003.5[facility]annCHEM ZUXYP6040-04-64 08:59:06216Xcbhbxoa [facility]CHE[facility] FWGWP5852-38-85 08:59:002.00[facility]annCHEM BMJQK7926-43-33 08:59:0021[facility]annCHEM MUTTO3965-16-72 08:59:008.4 [facility] OTLKN8777-50-97 08:59:009.5[facility]annHEMATOLOGY 2018-06-09 08:59:0041.9[facility] AvdfmvuQBLTXPWQVG6876-08-68 08:59:0014.1[facility] HrhsvydXFDGAMAHFW9576-71-03 08:59:007.9[facility] HkzeapiBMDBJSWNYN6566-82-45 08:59:004.61[facility] PitmsmoNPMQGEKULR0439-85-31 08:59:0033.5[facility] AUKZOBDQCZ3239-69-59 08:59:00 Test Item Value Reference Range Interpretation Comments MCH (test code = MCH) 30.5 pg 27.0-31.0 [facility] YnoxdgxLVFJXJBTTZ4304-24-38 08:59:0091.0[facility]annHEMATOLOGY 2018-06-09 08:59:008.5[facility] GrdoufcJQQKSZCZJU9099-32-15 08:59:25223Wmjhhggi WvfcnxkQFDJUGMZWH2482-88-36 08:59:0015.5[facility] JjtpyqhQABTLCCPTH7338-19-90 08:59:0042.3[facility] XegfsiuSVAZNXJUTW5266-19-71 08:59:000.1[facility] KBZYMRJFOC2895-60-22 08:59:000.1[facility] ZcggzwtLVTFMASQHM5281-04-27 08:59:000.5 [facility] IpnmbdzZSXRCQJPVH7925-31-00 08:59:003.9[facility]annHEMATOLOGY 2018-06-09 08:59:003.3[facility] VhhmtreRSDZMQGILX9582-76-62 08:59:006.9[facility] SmelsdiQKNRMYVPZY0494-78-82 08:59:001.0[facility] WddknkpLLEOZILPDR5468-90-73 08:59:000.7[facility] WnhzztnHEJFQTAABZ8421-69-10 08:59:0049.1[facility] COLON,KHHPMC1906-18-81 13:36:00 RUN DATE: 10/05/17 [employer] [facility] PAGE 1 RUN TIME: 1336 Specimen Inquiry RUN USER: INTERFACE PATIENT: ROSS MACHADO LOC: [facility] U #: [id number] AGE/SX: 47/M ROOM: [facility] RE09/30/17REG DR: Chanelle Sam MD : 72 BED: A DIS: 10/05/17 STATUS: DIS [place] TLOC: SPEC #: [id number] RECD: 10/04/17 STATUS: SOUT REQ #: [id number] JACK: 10/04/17-[address]: Jorge Shannon MD ENTERED: 10/04/176901 SP TYPE: BX COLON OTHR DR: DOES_NOT KNOW Brandon Oseguera MD, Khanh N MD Santos, Luviza J MDORDERED: PATHGM4/2, # OF BLOCKS/2, # OF SLIDES/4 TISSUES: A. SIGMOID COLON - POLYP BIOPSY B. COLON, NOS - RECTAL POLYP BIOPSY CLINICAL HISTORY DIVERTICULOSIS. FINAL MICROSCOPIC DIAGNOSIS A. COLON, SIGMOID POLYP, POLYPECTOMY: - HYPERPLASTIC POLYP B. RECTAL POLYP, POLYPECTOMY: - HYPERPLASTIC POLYP CPT: 55326 X2 GROSS DESCRIPTION Each container is labeled with the patient's name and medical record number. Specimen A is roma ignated "sigmoid colon polyp" and consists of two less than 0.2 cm pieces of goodman tissue; entirely submitted in A1. Specimen B is designated "rectal polyp" and consists of a 0.3 cm piece of goodman tissue; entirely submitted in B1. CRYSTAL/tb Signed SIGNATURE ON FILE Lines,Hanna PEREZ 10/05/17 6390 END OF REPORT URINE AND [id number] 02:27:00 Test Item Value Reference Range Interpretation Comments UA pH (test code = UA pH) 5.0 1 5.0-8.0 [facility] LDQOY3373-21-96 02:27:00 Test Item Value Reference Range Interpretation Comments UA Spec Grav (test code = UA Spec 1.054 1 Grav) [facility] EUSYB2249-93-25 02:27:00Negative (07/29/17 9:27 PM) [facility] ANCIA4536-67-43 02:27:00Trace *ABN*(07/29/17 9:27 PM) [facility] OWJWS8359-07-89 02:27:00Negative (07/29/17 9:27 PM) [facility] PUJUI2691-19-73 02:27:00<1[facility] GCJGI8683-93-33 02:27:003[facility] GBJYG9545-24-48 02:27:00 Negative (07/29/17 9:27 PM)[facility] VRGIN2636-07-96 02:27:00 Negative *NA*(07/29/17 9:27 PM)[facility] BAIAO6913-85-70 02:27:00 Clear (07/29/17 9:27 PM)[facility] LLEKI8461-90-40 02:27:00Amber *ABN*(07/29/17 9:27 PM)[facility] ZGNHS6746-88-24 02:27:00 Test Item Value Reference Range Interpretation Comments UA Spec Grav (test code = UA Spec 1.054 1 Grav) [facility] IKEIN4817-50-35 02:27:00Negative (07/29/17 9:27 PM) [facility] UBDMI2643-30-64 02:27:00Trace *ABN*(07/29/17 9:27 PM) [facility] AYFUM9895-43-89 02:27:00Negative (07/29/17 9:27 PM) [facility] RFLSA9016-17-39 02:27:00<1[facility] DQXBY1128-62-78 02:27:003[facility] VWKGQ6213-75-54 02:27:00 Negative (07/29/17 9:27 PM)[facility] QITVW9053-70-23 02:27:00 Negative *NA*(07/29/17 9:27 PM)[facility] MYEWJ1624-74-21 02:27:00 Clear (07/29/17 9:27 PM)[facility] LSOGA3338-46-89 02:27:00Amber *ABN*(07/29/17 9:27 PM)[facility] CXJMX6436-81-41 02:27:00 Test Item Value Reference Range Interpretation Comments UA pH (test code = UA pH) 5.0 1 5.0-8.0 [facility] XHUAH7586-08-48 00:54:0064[facility]annCHEM PANEL 2017-07-30 00:54:009.2[facility]annCHEM RWXKK4926-74-03 00:54:0031[facility]annCHEM YATUY9411-21-11 00:54:15230Bytvmgsa [facility]annCHE[facility] ZKTVO5632-90-38 00:54:003.7[facility]annCHEM BEOLG9030-08-37 00:54:52942Simwudgu [facility]CHE[facility] IKLGD2411-00-47 00:54:18951Eirtnkuy [facility]CHE[facility] OLRHV7986-20-40 00:54:0013 [facility] UCTWW8670-20-19 00:54:001.50[facility]annCHEM PANEL 2017-07-30 00:54:000.5[facility]annCHE[facility] ZRFXX1165-71-85 00:54:0026[facility]annCHE[facility] CLPTF8800-30-24 00:54:0097[facility]annCHEM IHIHM3361-16-72 00:54:004.1[facility]annCHE[facility] PWXVJ6947-22-52 00:54:0034[facility]annCHE[facility] BBRSR3478-18-78 00:54:008.1[facility]annCHE[facility] XFFNW4648-29-41 00:54:00 Test Item Value Reference Range Interpretation Comments A/G Ratio (test code = A/G Ratio) 1.0 1 0.7-1.6 [facility] LXZYK4622-04-05 00:54:004.0[facility]annCHEM PANEL 2017-07-30 00:54:00 Test Item Value Reference Range Interpretation Comments B/C Ratio (test code = B/C Ratio) 9 1 6-25 [facility] YSGTP0437-55-81 00:54:008.7[facility]annCHEM PANEL 2017-07-30 00:54:0073[facility] LqxzfhfVVGWYIOBNP4835-48-83 00:54:00 Test Item Value Reference Range Interpretation Comments PTT (test code = PTT) 25.7 s 22.9-35.8 [facility] DvwjispFSZLXAAYVM4345-18-85 00:54:00 Test Item Value Reference Range Interpretation Comments PT (test code = PT) 14.4 s 12.0-14.7 [facility] YxvteycTLVBTODRNT4970-41-43 00:54:00 Test Item Value Reference Range Interpretation Comments INR (test code = INR) 1.12 1 0.85-1.17 [facility] VxzwhhoGQFYXGTOMH2657-69-43 00:54:008.6[facility]annHEMATOLOGY 2017-07-30 00:54:0014.6[facility] XjpcnhiSRKWSHWLWH5119-73-79 00:54:0043.1[facility] FrknbgxJOTSFZDSUC9915-27-66 00:54:004.78[facility] UmqzkxeYRSSYGJHHC6948-00-06 00:54:0090.2[facility] VifcndtXBXSYJFEKF1763-19-39 00:54:00 Test Item Value Reference Range Interpretation Comments MCH (test code = MCH) 30.5 pg 27.0-31.0 [facility] NlgqmqqRTETDLUIRA0425-87-12 00:54:0033.8[facility]annHEMATOLOGY 2017-07-30 00:54:0015.0[facility] KeojoefHCSUMAVBSE3541-03-93 00:54:28382Sjtgsqrr YjefrciMIHLFOXISL4665-26-60 00:54:008.2[facility] LzogbsjDKQLOBKLBD3399-75-02 00:54:006.9[facility] UbzqtftSKEFISMSKZ3369-01-51 00:54:000.4[facility] HYVALGOWYC7072-18-34 00:54:000.3[facility] EnreurhYUAMUUFRGI7545-37-06 00:54:006.2 [facility] GecoqxqECFSNDEJOS9159-66-04 00:54:0017.3[facility]annHEMATOLOGY 2017-07-30 00:54:001.4[facility] MoajtrzGTPUAXPFUE6643-86-36 00:54:000.6[facility] EzzdlmgAZSHPJOVQY3093-92-99 00:54:0075.1[facility]annCHE[facility] JYAKM6529-39-62 00:54:0064[facility]annCHE[facility] YQVEC3346-50-70 00:54:009.2[facility]annCHEM RYEYG1864-90-59 00:54:0031[facility]annCHE[facility] ZIXMS4630-05-49 00:54:24518 [facility]CHE[facility] ZEYDS6051-51-00 00:54:003.7[facility]annCHEM PANEL 2017-07-30 00:54:55549Mxunoqpv HermannCHEM TPGRL0226-27-23 00:54:52212Bqztwcfj HermannCHEM DJDKC4959-66-78 00:54:0013[facility]annCHE[facility] LQNPD3106-44-08 00:54:001.50[facility] CHUCT8354-88-86 00:54:000.5[facility]CHE[facility] NMDOQ6412-06-40 00:54:0026[facility]CHE[facility] HRQLJ5183-48-35 00:54[facility]0097 [facility] CXMLD5566-65-63 00:54:004.1[facility]annCHE[facility] PANEL 2017-07-30 00:54:0034[facility]CHE[facility] KILEZ8161-43-06 00:54:008.1[facility] VHDQN0522-63-12 00:54:00 Test Item Value Reference Range Interpretation Comments A/G Ratio (test code = A/G Ratio) 1.0 1 0.7-1.6 [facility] WXDWV8302-41-55 00:54:004.0[facility] PANEL 2017-07-30 00:54:00 Test Item Value Reference Range Interpretation Comments B/C Ratio (test code = B/C Ratio) 9 1 6-25 [facility] AIHYU0758-08-97 00:54:008.7[facility]CHE[facility] PANEL 2017-07-30 00:54:0073[facility] XzndksrHQALYKYHSJ8683-27-86 00:54:00 Test Item Value Reference Range Interpretation Comments PTT (test code = PTT) 25.7 s 22.9-35.8 [facility]NTFNGVHW9720-27-92 00:54:00 Test Item Value Reference Range Interpretation Comments PT (test code = PT) 14.4 s 12.0-14.7 [facility]NjezgmpZRAKVOXWLL6519-83-02 00:54:00 Test Item Value Reference Range Interpretation Comments INR (test code = INR) 1.12 1 0.85-1.17 [facility] JlvbfaqIZBRXSYQMD0012-48-25 00:54:008.6[facility]annHEMATOLOGY 2017-07-30 00:54:0014.6[facility] YbdzqzxSJCEOBQNQK4328-31-91 00:54:0043.1[facility] JonkfcmAXCMQOOEDI9484-56-71 00:54:004.78[facility] KcgelhaXWTLCHINWN7726-50-01 00:54:0090.2[facility] TmpmbgePLPTVDRPXR6793-26-26 00:54:00 Test Item Value Reference Range Interpretation Comments MCH (test code = MCH) 30.5 pg 27.0-31.0 [facility] FjpqvvvZNORFOQAGP1850-21-25 00:54:0033.8[facility]annHEMATOLOGY 2017-07-30 00:54:0015.0[facility] ZcqqmrvYTZKDIBZOE9382-97-68 00:54:97581Uhnwsgzs PnniejzRPNPUNNOFS7307-44-34 00:54:008.2[facility] VjyorucTBMYMIZHZB5021-83-91 00:54:006.9[facility] YdkrapyARZPTDFPKL4520-98-06 00:54:000.4[facility] Erik CVWOGRNYDC4044-02-72 00:54:000.3[facility] ScsqmutGSVKTZRMRS4559-74-37 00:54:006.2 [facility] UruggecFRNAAEJHRQ4106-10-63 00:54:0017.3[facility]annHEMATOLOGY 2017-07-30 00:54:001.4[facility] IqgtnaqYGNHMLQXTB9939-61-01 00:54:000.6[facility] NesimjyFFJZZXTSRG4678-39-20 00:54:0075.1[facility] STOOL 2015-05-11 22:00:00None Seen (05/11/15 5:00 PM)[facility] ST[facility] 2015-05-11 22:00:00Negative (05/11/15 5:00 PM)[facility] ST[facility] 2015-05-11 22:00:00Negative (05/11/15 5:00 PM)[facility] STOOL 2015-05-11 22:00:00Negative (05/11/15 5:00 PM)[facility] STOOL 2015-05-11 22:00:000.2[facility] UOLAN9993-01-42 22:00:00Trace *ABN*(05/11/15 5:00 PM)[facility] [id number] 22:00:00 Test Item Value Reference Range Interpretation Comments UA Spec Grav (test code = UA Spec 1.015 1 Grav) [facility] [id number] 22:00:00Clear (05/11/15 5:00 PM) [facility] WQHKU2511-37-34 22:00:00 Test Item Value Reference Range Interpretation Comments UA pH (test code = UA pH) 6.0 1 5.0-8.0 [facility] [id number] 22:00:00Yellow *NA*(05/11/15 5:00 PM) [facility] CRAMC7710-07-24 22:00:00Negative *NA*(05/11/15 5:00 PM) [facility] GVMNK5672-22-78 22:00:00None Seen (05/11/15 5:00 PM) [facility] CNYZD6104-56-16 22:00:00Negative (05/11/15 5:00 PM) [facility] RUWZK0133-67-19 22:00:00Negative (05/11/15 5:00 PM) [facility] [id number] 22:00:00Negative (05/11/15 5:00 PM) [facility] SDKXD0131-65-75 22:00:000.2[facility] HYXPQ8656-50-74 22:00:00Trace *ABN*(05/11/15 5:00 PM)[facility] XHTVG3135-70-06 22:00:00 Test Item Value Reference Range Interpretation Comments UA Spec Grav (test code = UA Spec 1.015 1 Grav) [facility] MBODB6001-43-47 22:00:00Clear (05/11/15 5:00 PM) [facility] HCUCK1303-24-67 22:00:00 Test Item Value Reference Range Interpretation Comments UA pH (test code = UA pH) 6.0 1 5.0-8.0 [facility] BPNXG8308-64-34 22:00:00Yellow *NA*(05/11/15 5:00 PM) [facility] PFFLT0835-98-74 22:00:00Negative *NA*(05/11/15 5:00 PM) [facility]annCHEM QSXVU6980-71-77 18:29:0077[facility]annELECTROLYTES 2015-05-11 18:29:008.8[facility] VunbziuAQTBVRGKETCC6995-36-29 18:29:0011[facility] WesovgrAFAJIUXHCHMY0852-39-31 18:29:001.0[facility] UbwrtdrVABYYJITXIXP9334-93-87 18:29:004.0[facility] SpsxpgfBPOQHXHMYFKD2834-78-39 18:29:0065[facility] YBPWSJYMKURQ4874-83-48 18:29:0069[facility] ZouogftHPSWJVPANLZJ7921-79-47 18:29:00 35[facility] FzyobjtITEGVTYMSXKT7056-74-39 18:29:000.8[facility]annELECTROLYTES 2015-05-11 18:29:004.0[facility] RdlefqeTNMXACCETFSQ1116-91-71 18:29:0041[facility] VhoscecKONJQORVPMAC0737-04-65 18:29:008.0[facility] UknmhkpQQRDNVFLSLLR1898-63-39 18:29:009.1[facility] UoynldhJCIZASLXDFYB5542-34-52 18:29:0028[facility] NRJYOSKZLJEU4296-55-90 18:29:0017[facility] McyjljiHGQLTGGTFINU8348-83-00 18:29:00 97[facility] RuyivuwUCAMBNYAQYVW9172-24-16 18:29:84632Oiuxmsjp HermannELECTROLYTES 2015-05-11 18:29:13683Ggogkald YpmrayqUGLUDOSXAAHS7880-70-71 18:29:001.50 [facility] OflqpqaZSIYAOYRADYZ9395-40-59 18:29:003.8[facility]annHEMATOLOGY 2015-05-11 18:29:000.1[facility] FbaqhhrBHWTLZESDD9345-92-88 18:29:006.1[facility] KqtqfprHLGUYHOELB3018-43-32 18:29:000.8[facility] PnazwqgQHOUMBNHVQ4300-50-83 18:29:0024.2[facility] BbpcpqbQGWSJBETLM6785-00-83 18:29:000.5[facility] XUJMMYNRHE7651-36-26 18:29:005.4[facility] EkyrgkmSMUOQKKEIE5365-29-85 18:29:001.9 [facility] LgnstasHPJLRCTIRB5515-22-97 18:29:000.5[facility]annHEMATOLOGY 2015-05-11 18:29:0068.4[facility] EuwqqwxBDZTSCKSJD0377-81-28 18:29:00 Test Item Value Reference Range Interpretation Comments PTT (test code = PTT) 25.1 s 22.9-35.8 [facility] LmwsfxfWATQBDTJKY5400-86-05 18:29:27959Ubvnbqga HermannHEMATOLOGY 2015-05-11 18:29:008.3[facility] YfdxjjpCQJGOWBHYU3637-59-87 18:29:0091.5[facility] ZptczsrXQDJGCFSNA7648-72-10 18:29:007.9[facility] OpdmhknFXJEKRACNA4631-99-50 18:29:005.28[facility] PsfttpfOBIUOUOFGE4936-14-72 18:29:0048.3[facility] Erik VTWFHAQQBS7208-40-44 18:29:0015.8[facility] AblinpvWKVLBXXOAG4658-52-30 18:29:00 15.1[facility] DqmyayxIXOLTLQAXX5094-77-93 18:29:0032.7[facility]annHEMATOLOGY 2015-05-11 18:29:00 Test Item Value Reference Range Interpretation Comments MCH (test code = MCH) 29.9 pg 27.0-31.0 [facility] SqdvnmoIPQFVLGQDF7042-10-54 18:29:000.98[facility]annHEMATOLOGY 2015-05-11 18:29:00 Test Item Value Reference Range Interpretation Comments PT (test code = PT) 13.3 s 12.0-14.7 [facility]annCHEM DOUDI4075-82-30 18:29:0077[facility]annELECTROLYTES 2015-05-11 18:29:008.8[facility] XxyveqqPSLQZKEVOCPE9467-66-74 18:29:0011[facility] RdyzemjAGQXMRZBIZLV4985-97-78 18:29:001.0[facility] WwhdhaoMUXTBROVIWCA0755-34-77 18:29:004.0[facility] JrgxwfyORCRFBPLLLLD9893-24-52 18:29:0065[facility] NPXLWFKOUCNA3562-70-97 18:29:0069[facility] XhwtabaSSLAKOYUVAEY5031-07-91 18:29:00 35[facility] SugzsciJMTUYUKSDBVC7729-64-96 18:29:000.8[facility]annELECTROLYTES 2015-05-11 18:29:004.0[facility] BpefwvbJSMBDXNSBLAH6295-98-70 18:29:0041[facility] BhztlmmGLCOOBYLHIUV4545-95-21 18:29:008.0[facility] GrytoymVUIAQCOKMNHZ3329-48-57 18:29:009.1[facility] VzecgopSKIZSQVGXDNU0043-19-73 18:29:0028[facility] RJVGUDLACAKU3841-40-97 18:29:0017[facility] IbhuqhlNOBEGBFQZLKX8876-53-65 18:29:00 97[facility] TsoeijuNBRCOJLQXWLZ2985-66-70 18:29:69609Kwtegnlp HermannELECTROLYTES 2015-05-11 18:29:10375Mvdqplmd CrbmfbrXMATTJBLERYT2481-72-15 18:29:001.50 [facility] EplkrsvAKDBOIYWBPPM8309-15-08 18:29:003.8[facility]annHEMATOLOGY 2015-05-11 18:29:000.1[facility] UtzfhwrUUCMWTIGDI7932-50-85 18:29:006.1[facility] CoikeyySJZBZXCBAD6301-46-60 18:29:000.8[facility] DrsdamkNXBBPOAZAS4310-87-36 18:29:0024.2[facility] XlexdnaUXJEBOKCCA7142-79-13 18:29:000.5[facility] Erki SHQKPGMINZ8440-94-04 18:29:005.4[facility] WzbsyfuQMZAWBSJNS1869-93-01 18:29:001.9 [facility] NcooicpNFZQKJGBRL9623-52-31 18:29:000.5[facility]annHEMATOLOGY 2015-05-11 18:29:0068.4[facility] CifftdgJHLHRUEMCG9171-75-98 18:29:00 Test Item Value Reference Range Interpretation Comments PTT (test code = PTT) 25.1 s 22.9-35.8 [facility] KexajpjMKWZGKZCRY5529-42-06 18:29:93172Gctwwilq HermannHEMATOLOGY 2015-05-11 18:29:008.3[facility] AfeyjwnORBNNXVRHX6510-33-48 18:29:0091.5[facility] CiiesimOHLKYHUVZQ2284-57-98 18:29:007.9[facility] HmpaqnjAXAVEJOHSE9886-34-11 18:29:005.28[facility] GowxmevGQOYWHIFOA9710-57-44 18:29:0048.3[facility] Erik GQZBUOIPWL3676-66-59 18:29:0015.8[facility] GoodmjyXRHPJMCAUE8303-73-78 18:29:00 15.1[facility] NuhsipvPLURWUPLTG6122-52-22 18:29:0032.7[facility]annHEMATOLOGY 2015-05-11 18:29:00 Test Item Value Reference Range Interpretation Comments MCH (test code = MCH) 29.9 pg 27.0-31.0 [facility] KcyfdnaYQNCAFJSDO9146-17-70 18:29:000.98[facility]annHEMATOLOGY 2015-05-11 18:29:00 Test Item Value Reference Range Interpretation Comments PT (test code = PT) 13.3 s 12.0-14.7 [facility]
--- NOTE | 2020-10-16 15:48 | ER ---
Nurse's Notes [facility] Name: Fuad Segundo Age: 50 yrs Sex: Male : 1970 Arrival Date: 10/16/2020 Time: 15:20 Bed Waiting Private MD: Diagnosis: Gout, unspecified Presentation: 10/16 15:31 Chief complaint: Patient states: gout flare up to right foot x 2 days ago. Coronavirus aa5 screen: At this time, the client does not indicate any symptoms associated with coronavirus-19. Ebola Screen: Patient negative for fever greater than or equal to 101.5 degrees Fahrenheit, and additional compatible Ebola Virus Disease symptoms. Initial Sepsis Screen: Does the patient meet any 2 criteria? No. Patient's initial sepsis screen is negative. Does the patient have a suspected source of infection? No. Patient's initial sepsis screen is negative. Risk Assessment: Do you want to hurt yourself or someone else? Patient reports no desire to harm self or others. Onset of symptoms was 2020. 15:31 Method Of Arrival: Ambulatory aa5 15:31 Acuity: TONY 4 aa5 Historical: - Allergies: 15:32 No Known Allergies; aa5 - PMHx: 15:32 Gout; Hypertensive disorder; CHF; aa5 - PSHx: 15:32 Triple bypass; aa5 - Immunization history:: Client reports receiving the 2nd dose of the Covid vaccine. - Social history:: Smoking status: Patient denies any tobacco usage or history of. Vital Signs: 15:31 BP 107 / 56; Pulse 78; Resp 16 S; Temp 98.7(O); Pulse Ox 97% on R/A; Height 5 ft. 9 in. aa5 (175.26 cm) (R); ED Course: 15:20 Patient arrived in ED. as 15:32 Triage completed. aa5 15:33 Arm band placed on. aa5 15:39 Enrique Pop PA is PHCP. cp 15:39 Yousif Ledezma MD is Attending Physician. cp 15:58 No provider procedures requiring assistance completed. Patient did not have IV access aa5 during this emergency room visit. Administered Medications: No medications were administered Outcome: 15:48 Discharge ordered by . cp 15:57 Discharged to home via wheelchair, with significant other. aa5 15:57 Condition: stable 15:57 Discharge instructions given to patient, significant other, Instructed on discharge instructions, follow up and referral plans. medication usage, Demonstrated understanding of instructions, follow-up care, medications, Prescriptions given X 1. 15:58 Patient left the ED. aa5 Signatures: Tamara Byrnes Audri, RN RN aa5 Enrique Pop PA PA cp
--- NOTE | 2020-10-16 15:49 | EDPHYS ---
Physician Documentation [facility] Name: Fuad Segundo Age: 50 yrs Sex: Male : 1970 Arrival Date: 10/16/2020 Time: 15:20 Bed Waiting Private MD: ED Physician Yousif Ledezma HPI: 10/16 15:45 This 50 yrs old Black Male presents to ER via Ambulatory with complaints of Gout. cp 15:45 The patient presents with pain, that is acute, swelling, tenderness. The complaints cp affect the right great toe. 15:45 Onset: The symptoms/episode began/occurred 2 day(s) ago. cp 15:45 Associated signs and symptoms: Pertinent positives: swelling, warmth, Pertinent cp negatives calf tenderness, fever, numbness. Treatment prior to arrival includes: no previous treatment. Historical: - Allergies: 15:32 No Known Allergies; aa5 - PMHx: 15:32 Gout; Hypertensive disorder; CHF; aa5 - PSHx: 15:32 Triple bypass; aa5 - Immunization history:: Client reports receiving the 2nd dose of the Covid vaccine. - Social history:: Smoking status: Patient denies any tobacco usage or history of. ROS: 15:45 Constitutional: Negative for body aches, chills, fever, poor PO intake. cp 15:45 Cardiovascular: Negative for chest pain. cp 15:45 Respiratory: Negative for cough, shortness of breath, wheezing. 15:45 Abdomen/GI: Negative for abdominal pain, nausea, vomiting, and diarrhea. 15:45 MS/extremity: Positive for pain, swelling, tenderness, warmth, of the right great toe, Negative for injury or acute deformity. 15:45 Skin: Negative for cellulitis, rash. 15:45 All other systems are negative. Exam: 15:45 Constitutional: The patient appears in no acute distress, alert, awake, non-toxic, well cp developed, well nourished. 15:45 Musculoskeletal/extremity: Extremities: grossly normal except: noted in the cp metatarsalphalangeal joint right great toe: pain, swelling, tenderness, warmth, ROM: limited passive range of motion, in the metatarsalphalangeal joint right great toe, limited passive range of motion due to pain, in the metatarsalphalangeal joint right great toe, Perfusion: the extremity is normally perfused throughout, Severe pain noted. Vital Signs: 15:31 BP 107 / 56; Pulse 78; Resp 16 S; Temp 98.7(O); Pulse Ox 97% on R/A; Height 5 ft. 9 in. aa5 (175.26 cm) (R); MDM: 15:48 Patient medically screened. cp 15:48 Differential diagnosis: tendonitis, gout, cellulitis, osteomyelitis. cp 15:48 Data reviewed: vital signs, nurses notes, and as a result, I will discharge patient. cp Counseling: I had a detailed discussion with the patient and/or guardian regarding: the historical points, exam findings, and any diagnostic results supporting the discharge/admit diagnosis, the need for outpatient follow up, a family practitioner, to return to the emergency department if symptoms worsen or persist or if there are any questions or concerns that arise at home. Administered Medications: No medications were administered Disposition: 15:50 Chart complete. cp Disposition Summary: 10/16/20 15:48 Discharge Ordered Location: Home cp Problem: an acute exacerbation cp Symptoms: are unchanged cp Condition: Stable cp Diagnosis - Gout, unspecified cp Followup: cp - With: Private Physician - When: 2 - 3 days - Reason: Recheck today's complaints Discharge Instructions: - Discharge Summary Sheet cp - Gout cp - Low-Purine Eating Plan cp Forms: - Medication Reconciliation Form cp - Thank You Letter cp - Antibiotic Education cp - Prescription Opioid Use cp Prescriptions: - indomethacin 50 mg Oral capsule - take 1 capsule by ORAL route 3 times per day for 3 days, then 1 cap 2 times per cp day for 2 days, then 1 cap daily for 2 days; 30 capsule; Refills: 0, Product Selection Permitted Signatures: Nancy Arias RN RN aa5 Enrique Pop PA PA cp Corrections: (The following items were deleted from the chart) 15:47 15:46 This 50 yrs old Black Male presents to ER via Ambulatory with complaints of Gout. cp cp
[2020-10-16 16:10] VITALS: BP 107/56; TEMP 98.7; O2SAT 97
== END 2020-10-16 15:58 | disposition home or self-care (01) ==
LOC: ER 15:19
DX: M10.9 Gout, unspecified (principal); I10 Essential (primary) hypertension; Z95.1 Presence of aortocoronary bypass graft
CPT/HCPCS: 99282